=== PATIENT | female | born 1960 | race Caucasian/White ===

== ENCOUNTER 2022-11-02 14:38 | Outpatient (CLI) | payer BC, SELFPAY | END 2022-11-02 14:39 | disposition home or self-care (01) | PROVIDERS: PCP Emergency Medicine; Visit Provider Physician Assistant Medical | DX: I10 Essential (primary) hypertension (principal); M79.641 Pain in right hand; M79.642 Pain in left hand | CPT/HCPCS: 84439; 84443; 86039; 86140; 86200; 86431; 86812 ==

== ENCOUNTER 2022-11-16 12:53 | Outpatient (RCR) | payer BC, SELFPAY ==
--- NOTE | 2022-11-17 16:55 | OT.OPOE ---
OT Outpatient Ortho Eval OT Outpatient Ortho Eval* Start: 11/17/22 15:02 Freq: Status: Active Protocol: Document 11/16/22 01:00 MILAD (Rec: 11/17/22 15:40 MILAD [id number]) E-signed By Paige Nix, OTR/L, CLT OT OP Ortho Eval Details Complexity Complexity Medium Insurance Information Insurance Information [employer] Outpatient History/Precautions Current Condition/Medical Diagnosis Referring Provider Felicia Rea Treatment Diagnosis Pain in R hand M79.641; Stiffness in R hand M25.641 Date of Onset Chronic and getting worse Medical Conditions Arthritis Other Conditions Thrombocytosis TSH elevation Elevated fasting glucose Acute respiratory failure with hypoxia Medical/Functional History Medical History Reviewed Yes Prior Level of Function/Mobility Patient is very active, fully Indep and in good health. Patient has 4 adult children and multiple grandkids who she enjoys spending time with. Social History Employment Status [employer] Employed Current Occupation Patient is a Cook at the [employer] Critical Job Demands Pull,Lift,Overhead Reach, Prolonged Standing,Other Other Critical Job Demands heavy use of hands (cutting, pealing, chopping, measuring, serving, jars) Hobbies Pickleball Fitness Very active Ortho Subjective Subjective Subjective I want to learn what I should do with my hands Pain Assessment Pain Present Pain Present Pain Reported Location Right Hand Description Tightness,Dull, Achy,Throbbing ,Heaviness Intensity 2 Hand Pinch/Supervisor Reinforced Steel Placing Strength Hand Right Supervisor Reinforced Steel Placing Strength Position 1 (lbs) 38 Supervisor Reinforced Steel Placing Strength Position 2 (lbs) 41 Lateral Pinch Strength (lbs) 13 Three Point Pinch (lbs) 13 Tip Pinch Strength (lbs) 12 Left Supervisor Reinforced Steel Placing Strength Position 1 (lbs) 45 Supervisor Reinforced Steel Placing Strength Position 2 (lbs) 45 Lateral Pinch Strength (lbs) 15 Three Point Pinch (lbs) 14 Tip Pinch Strength (lbs) 17 Upper Extremity Special Tests Wrist Durkan's Test Negative Left,Negative Right Median Nerve-Carpal Tunnel Wrist Phalen Test Negative Left,Negative Right Ulnar Nerve Froment's Sign Negative Left,Negative Right Scaphoid and Lunate Hand Luke's Sign Negative Left,Negative Right Hand Botello Test Negative Left,Negative Right OT Problems Problems Problems Decreased Strength,Decreased Range of Motion,Decreased Dexterity,Pain,Gripping, Pinching Other Problems Writing,Opening Containers, Fasteners Patient Potential Excellent Assessment Assessment Assessment This is a pleasant 62 year old female who presents to the clinic with complaints of R ( dominant) hand pain and stiffness (mostly in 2 of her fingers (R Index and Middle). Patient has enlargement of both the index finger and middle finger, there is some slight ulnar deviation of the DIP joints at the index finger and middle finger, along with enlarged joints at the PIP joint, edema present. Patient unable to make a full composite fist with her R hand , lacking 1-1.5 cms at the R index and middle digit. Patient knows that arthritis isn't a diagnosis that she can undo but wishes to be proactive and learn smart strategies in her activity modifications as well as gain hand/wrist strength. Patient reports that she is trying an anti-inflammatory diet Occupational Therapy Treatment Plan - OP Potential Rehabilitation Potential Excellent Barriers Barriers to goal attainment Patient (R) dominant lacks diesel powerplant mechanic strength and pinch strength when being compared to standardized norms for gender/age group. Arthritis is Chronic Set Goals Goals Set with Patient Yes Goals Goals Patient will return to clinic (as needed) provided patient with multiple sheets/handouts/ resources at date/time of EVAL 1. Patient will verbalize 3 activity modifications to decrease abusive/overloading joints in hands. 2. Through activity participation and consistency in performing a customized HEP , patient will improve capacity of R dominant hand to manage daily workloads in order to have less pain with ADLs, work, leisure activities and IADLs. Target Date 10 weeks Treatment Plan Treatment Plan Evaluation,Edema Control, Ultrasound,Therapeutic Exercise,Education Expected Frequency As Needed Expected Duration 8-10 Weeks Home Program Home Program Home Program Initiated Home Program Specifics Yellow putty, hammer, Flex bar , power web digit/hand/wrist strengthening programs. Arthritis Handout on activity modifications and joint protection. Certification Certification I Certify That: Therapy Services Provided, Therapy Plan Established, Therapy Plan Reviewed Recertification Information Recertification Information Initial Certification Date 11/17/22 Recertification Due Date 02/15/23 Provider Signature Shows Agreement With POC & Medical Necessity Physician Comment/Change Comment or Changes Physician NPI Number #
== END 2023-01-04 10:08 | disposition home or self-care (01) ==
PROVIDERS: PCP Emergency Medicine; Visit Provider Physician Assistant Medical
DX: M79.641 Pain in right hand (principal); M79.642 Pain in left hand; M19.041 Primary osteoarthritis, right hand; M25.641 Stiffness of right hand, not elsewhere classified; Z51.89 Encounter for other specified aftercare
CPT/HCPCS: 97166

== ENCOUNTER 2022-12-20 14:29 | Outpatient (CLI) | payer BC, SELFPAY | END 2022-12-20 14:30 | disposition home or self-care (01) | LOC: LKVREF 14:31 | PROVIDERS: PCP Emergency Medicine; Visit Provider Physician Assistant Medical | DX: I10 Essential (primary) hypertension (principal); R79.89 Other specified abnormal findings of blood chemistry | CPT/HCPCS: 84443 ==

== ENCOUNTER 2023-12-13 08:15 | Outpatient (CLI) | payer BC, SELFPAY | END 2023-12-13 08:16 | disposition home or self-care (01) | PROVIDERS: PCP Physician Assistant Medical; Visit Provider Physician Assistant Medical | DX: I10 Essential (primary) hypertension (principal); R79.89 Other specified abnormal findings of blood chemistry; E78.5 Hyperlipidemia, unspecified | CPT/HCPCS: 80053; 80061; 84439; 84443 ==

== ENCOUNTER 2024-01-14 13:49 | Outpatient (CLI) | payer BC, SELFPAY ==
--- OUTSIDE RECORDS SUMMARY | 2024-01-15 08:17 | XMS_ITS | Clinical Summary ---
Author Organization [facility] Address [address] [place] [address] Care Team Providers Care Multiplex Operator Name Role Phone Shannan Roach MD Primary Care Provider [phone]- [phone] Allergies No known active allergies Medications Medication Sig Dispensed Refills Start Date End Date Status vitamin C (ASCORBIC ACID) 500 MG tablet Take 500 mg by mouth 2 times daily Active vitamin D3 (CHOLECALCIFEROL) 50 mcg (2000 units) tablet Take 1 tablet by mouth daily Active zinc 50 MG TABS Take 1 tablet by mouth daily Active albuterol (PROAIR HFA/PROVENTIL HFA/VENTOLIN HFA) 108 (90 Base) MCG/ACT inhalerIndications:P neumonia due to COVID-19 virus Inhale 2 puffs into the lungs every 6 hours as needed for wheezing or shortness of breath / dyspnea 8 g 11/20/2020 Active dexamethasone (DECADRON) 6 MG tabletIndications:Pn eumonia due to COVID-19 virus Take 1 tablet (6 mg) by mouth daily 8 tablet 11/20/2020 Active Active Problems Problem Noted Date Diagnosed Date Acute respiratory failure with hypoxia Pneumonia due to COVID-19 virus 11/18/2020 Acute pain of right shoulder 02/08/2009 Immunizations Name Administration Dates Next Due Td (Adult), Adsorbed 07/17/2016 Social History Tobacco Use Types Packs/Day Years Used Date Smoking Tobacco: Never Assessed Adolescent Education Answer Date Record ed Getting School Help Needed Not on file 01/14 Sex and Gender Information Value Date Recorded Sex Assigned at Not on file Gender Identity Not on file Sexual Orientation Not on file Last Filed Vital Signs Vital Sign Reading Time Taken Comments Blood Pressure 162/91 12/07/2022 10:36 AM CDT Pulse 100 12/07/2022 10:36 AM CDT Temperature 37 ??C (98.6 ??F) 12/07/2022 10:36 AM CDT Respiratory Rate 20 11/20/2020 12:14 PM CDT Oxygen Saturation 97% 12/07/2022 10:36 AM CDT Inhaled Oxygen Concentration - - Weight 82.6 kg (182 lb) 11/18/2020 4:34 PM CDT Height 162.6 cm (5' 4) 11/18/2020 4:34 PM CDT Body Mass Index 31.24 11/18/2020 4:34 PM CDT Plan of Treatment Health Maintenance Due Date Last Done Comments ADVANCE CARE PLANNING 1960 ANNUAL REVIEW OF HM ORDERS 1960 CT COLONOGRAPHY 1960 FIT 1960 FLEX SIG 1960 YEARLY PREVENTIVE VISIT 1960 sDNA (Cologuard) 1960 COVID-19 Vaccine (#1) 1965 COLONOSCOPY 1970 COLORECTAL CANCER SCREENING 1970 HIV SCREENING 07/22/1975 HEPATITIS C SCREENING 1978 LIPID 2000 DTAP/TDAP/TD IMMUNIZATION (1 - Tdap) 07/18/2016 07/17/2016 MAMMO SCREENING 09/30/2017 10/01/2015, 12/21/2009, 11/29/2005 PHQ-2 (once per calendar year) 2023 GLUCOSE 11/21/2023 11/20/2020, 11/19/2020, 11/18/2020 INFLUENZA VACCINE (#1) 2023 8, 01/25/2016, 01/15/2016 PAP 05/11/2025 05/11/2022, 05/11/2022 RSV VACCINE (1 - 1-dose 75+ series) 07/22/2035 ZOSTER IMMUNIZATION Completed 11/01/2020, 07/28/2020 HPV IMMUNIZATION Aged Out No longer e ligible based on patient's age to complete this topic MENINGITIS IMMUNIZATION Aged Out No l onger eligible based on patient's age to complete this topic Pneumococcal Vaccine: Pediatrics (0 to 5 Years) and At-Risk Patients (6 to 64 Years) Aged Out No longer eligible b ased on patient's age to complete this topic RSV MONOCLONAL ANTIBODY Aged Out No l onger eligible based on patient's age to complete this topic Procedures Procedure Name Priority Date/Time Associated Diagnosis Comments BASIC METABOLIC PANEL Routine 11/20/2020 8:04 AM CDT [place] SCREENING DIGITAL BILATERAL Routine 10/01/2015 9:22 AM CDT Visit for screening mammogram from Last 3 Months or Most Recently Relevant to Health Maintenance Results * (ABNORMAL) Basic metabolic panel (11/20/2020 8:04 AM CDT) Sodium 139 133 - 144 mmol/L 11/20/2020 8:44 AM CDT LABORATORY Potassium 4.0 3.4 - 5.3 mmol/L 11/20/2020 8:44 AM CDT LABORATORY Chloride 109 94 - 109 mmol/L 11/20/2020 8:44 AM CDT LABORATORY Carbon Dioxide (CO2) 27 20 - 32 mmol/L 11/20/2020 8:44 AM CDT LABORATORY Anion Gap 3 3 - 14 mmol/L 11/20/2020 8:44 AM CDT LABORATORY Urea Nitrogen 23 7 - 30 mg/dL 11/20/2020 8:44 AM CDT LABORATORY Creatinine 0.93 0.52 - 1.04 mg/dL 11/20/2020 8:44 AM CDT LABORATORY Calcium 9.7 8.5 - 10.1 mg/dL 11/20/2020 8:44 AM CDT LABORATORY Glucose 118(H) 70 - 99 mg/dL 11/20/2020 8:44 AM CDT LABORATORY GFR Estimate 67 >60 mL/min/1.7 3m2 11/20/2020 8:44 AM CDT LABORATORY Comment:As of October 10, 2020, eGFR is calculated by the CKD-EPI creatinine equation, without race adjustment. eGFR can be influenced by muscle mass, exercise, and diet. The reported eGFR is an estimation only and is only applicable if the renal function is stable. Blood STRUCTURE OF LEFT UPPER LIMB / Unknown Venipuncture / Unknown 11/20/2020 8:04 AM CDT 11/20/2020 8:21 AM CDT Kelley Rea PA-C LAB - BLOOD [facility] Lab [address] Lab (1st floor, no room number) [place] [address], [facility] [phone] * [place] Screening Digital Bilateral (10/01/2015 9:22 AM CDT) Anatomical Region Laterality Modality Breast Bilateral Mammography Impressions 10/01/2015 10:57 AM CDT IMPRESSION: BI-RADS CATEGORY: 1 - Negative. RECOMMENDED FOLLOW-UP: Annual Mammography. Recommend routine annual screening mammography. Exam results letter mailed to patient. CHARLI SUMMERS MD Narrative 10/01/2015 10:57 AM CDT SCREENING MAMMOGRAM, BILATERAL, DIGITAL w/CAD - 10/01/2015 9:22 AM. BREAST SYMPTOMS: No current breast complaints. COMPARISON: ??12/21/2009, 11/29/2005. BREAST DENSITY: Scattered fibroglandular densities. COMMENTS: No findings of suspicion for malignancy. ? Procedure Note Charli Summers MD - 10/01/2015 SCREENING MAMMOGRAM, BILATERAL, DIGITAL w/CAD - 10/01/2015 9:22 AM. BREAST SYMPTOMS: No current breast complaints. COMPARISON: 12/21/2009, 11/29/2005. BREAST DENSITY: Scattered fibroglandular densities. COMMENTS: No findings of suspicion for malignancy. IMPRESSION: BI-RADS CATEGORY: 1 - Negative. RECOMMENDED FOLLOW-UP: Annual Mammography. Recommend routine annual screening mammography. Exam results letter mailed to patient. CHARLI SUMMERS MD Jackie Valencia MD IMG MAMMOGRAPHY [facility] from Last 3 Months or Most Recently Relevant to Health Maintenance Advance Directives For more information, please contact: [phone] * Full Code (Latest Code Status on File) Date Activated Date Inactivated Comments 11/18/2020 4:28 PM 11/20/2020 4:12 PM All basic an d advanced life-sustaining interventions are performed as appropriate Question Answer Comments Code status determined by: Discussion with shanika nt/ legal decision maker Care Teams Multiplex Operator Relationship Specialty Start Date End Date Shannan Roach MD [facility] [address] [place] [address] PCP - General Family Medicine 11/18/20
--- OUTSIDE RECORDS SUMMARY | 2024-01-15 08:17 | XMS_ITS | Referral Summary ---
Author Organization [facility] Address [address] [place] [id number] Care Team Providers Care Commercial Finance Manager Name Role Phone Shannan Roach MD Primary Care Provider +1- [phone] Allergies No known active allergies Medications Medication [...] 11/18/2020 4:34 PM CDT Plan of Treatment Not on file Procedures Procedure Name Priority Date/Time Associated Diagnosis [...] - 109 mmol/L 11/20/2020 8:44 AM CDT [facility] Carbon Dioxide (CO2) 27 20 - 32 mmol/L 11/20/2020 8:44 AM CDT [facility] Anion Gap 3 3 - 14 mmol/L 11/20/2020 8:44 AM CDT [facility] Urea Nitrogen 23 7 - 30 mg/dL 11/20/2020 8:44 AM CDT [facility] Creatinine 0.93 0.52 - 1.04 mg/dL [...] Rea PA-C LAB - BLOOD [facility] Acute Care Lab [address] Lab (1st floor, no room number) [place] [address], [facility] [phone] * [place] Screening Digital Bilateral (10/01/2015 9:22 [...] SUMMERS MD Jackie Valencia MD IMG MAMMOGRAPHY [facility] from Last 3 Months or Most Recently Relevant to Health Maintenance Advance Directives For more information, please contact: [phone] * Full Code (Latest Code Status on File) Date Activated Date Inactivated Comments 11/18/2020 4:28 PM 11/20/2020 4:12 PM All basic an d advanced life-sustaining interventions are performed as appropriate Question Answer Comments Code status determined by: Discussion with patie nt/ legal decision maker Care Teams Commercial Finance Manager Relationship Specialty Start Date End Date Shannan Roach MD [facility] [address] [place], [place] [id number] PCP - General Family Medicine 11/18/20
== END 2024-01-14 13:50 | disposition home or self-care (01) ==
LOC: NFLDREF 01-15 08:14
PROVIDERS: PCP Physician Assistant Medical; Referring Provider Physician Assistant Medical; Visit Provider Physician Assistant Medical
DX: R79.89 Other specified abnormal findings of blood chemistry (principal)
CPT/HCPCS: 84439; 84443; 86376

== ENCOUNTER 2024-03-04 13:45 | Outpatient (CLI) | payer BC, SELFPAY ==
--- OUTSIDE RECORDS SUMMARY | 2024-03-08 15:22 | XMS_ITS | Data Portability ---
Author Organization [place] [facility] Address [address] [address] Care Team Providers Care Garment Presser Name Role Phone LISBETH PEREIRA Primary Care Provider TRINA COOPER Referring Provider Assessment Encounter Date Assessment Date Assessment LastModified by Organization Details LastModified Time 01/24/2022 01/24/2022 Today I spent a considerable amount of time discussing the patients past medical and personal history, as well as performing a physical examination all of which is documented in it's entirety in the electronic health record. I reviewed the pathophysiology of the disorder, potential contributing and risk factors as well as treatment options to address their complaints. Today panoramic image was taken. In this radiograph the mandibular condyles were partially visualized and and left especially looks distinctively flat with a loss of condylar height. As this is the symptomatic side we should clarify with a CBCT of what the extent of disease is. Maisha decided to wait on this today. 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 I explained her the progression that may happen with an untreated jaw along with change in dental occlusion. She is using a proform appliance. From a treatment perspective I recommended a rehabilitative treatment approach. Treatment begins with home self management designed to rest the muscles of mastication and reduce inflammation in the temporomandibular joints. This includes heat and ice compresses, eating a soft food or pain-free diet, bilateral chewing identifying and decreasing daytime muscle tension and modification of their sleep position. Beyond self management I believe that they would benefit from a mandibular intraoral appliance. Kate is missing #3 and tends to chew on her left side, she will look into an implant and will check with her dentist in regards to making a splint. In addition I've recommended rehabilitation with physical therapy. The goal of treatment is to restore function and reduce pain. I believe that by following these treatment recommendations there is a good prognosis for reduction of symptoms. History was obtained from the patient. The patient has 3 diagnoses they would like to address. This case is moderate complexity because of multiple diagnoses with chronic symptoms. Data reviewed included: procedure documentation. Discussion with pain team members after visit was necessary. Risk of complications include progressive disease/symptoms. Today time spent may have included a review of past records, history taking, review of diagnoses, contributing factors, treatment plan, diagnostic testing, prognosis, expectations, risks and complications of treatment/no treatment, discussions with other providers and completing documentation was 60 minutes. Cost of care and insurance coverage was reviewed and discussed with the patient. Not available 01/30/2022 13:03:13 02/16/2022 02/16/2022 Patient presents to therapy with signs and symptoms consistent with the ICD 10 diagnoses noted below. Main findings include: L TMJ hypomobility and confirmed condylar changes per imaging. Pt also notes B hand swelling most notably in 2nd and 3rd digits. Condition is evolving with moderate irritability and personal factors/comorbidit ies affecting the plan of care (see history section for list of factors). These findings limit the pt from participation in the following functional activities: . Treatment plan to include reducing myalgia, increasing joint ROM, teaching self management strategies and strengthening to provide long-term symptom reduction. The patient was educated on the risks/benefits of physical therapy and the anatomy pertaining to their present condition. The physical therapy POC and goals were discussed with the patient and all present questions/concerns were addressed. Pt agrees to treatment plan. Rehabilitation potential is good.. Treatment to include: therapeutic exercise, manual therapy, neuro muscular re education, therapeutic activities, self care, possible dry needling and modalities as needed. Frequency: will be 2>1/weeks for 4weeks, tapering as able for a total of 3-4 visits over 1 months. [email or web address] Not available 02/16/2022 16:25:29 Plan of Treatment Reminders Order Date Submit Date Provider Last Modified By Organization Details Last Modified Time Details Appointments None recorded. Lab None recorded. Referral physical therapist referral 2021 022 Not available 13:02:32 Procedures None recorded. Surgeries None recorded. Imaging None recorded. Medication Orders None recorded. Patient Targets Encounter Date Encounter Id Patient Goals Patient Target Last Modified By Organization Details Last Modified Time Short term goals (to be met in 3 weeks):*Pt will decrease muscle tension and muscle guarding habits through education in order to decrease pain allowing for improved tolerance to eating meals with minimal modification.*Pt will be independent with home exercise program while demonstrating compliance and safety in order to return to prior level of function with goal of improving ability to close fingers to a full fist.terminal clerk goals (to be met in 6 weeks):*Patient will report improved score on JFWL by at least 10%, indicating clinically significant improvement in self-reported level of function to allow patient to safely achieve pre-onset level of function. [email or web address] Not available 02/16/2022 16:25:33 Patient Instructions Encounter Date Encounter Id Patient Instructions Last Modified By Organization Details Last Modified Time 01/24/2022 [id number] Self Care for TMD Not availab le 01/30/2022 13:02:32 oral appliance preparation* Not available 01/30/2022 13:02:32 02/16/2022 [id number] Total treatment time minutes today = 44 Next Visit Plan: followup a couple weeks after splint. How are L joint distractions Goals: prevent L TMJ arthritis from worsening. Progress Note Date: Medicare POC sent: [email or web address] Not available 02/16/2022 16:26:34 Reason for Referral Physical Therapist Referral for Degenerative arthritis of temporomandibular joint Referring Physician: Hayes Brooks, Pain Management, Encounter Date: 01/24/2022 Results Created Date Observation Date Name Description Value Unit Range Abnormal Flag Note LastModifiedBy Organization Detail LastModifiedTime 01/31/2001/30/2022 oral appli ance prepa ratio n* Type of appliance mandib ular stabil izatio n applia nce Not Available [place] [address] [facility] [address], [place], [address], 01/24/2022 15:30:42 01/25/20 22 XR, ortho panto gram No observ ation record ed. Not Available 01/24 15:51:41 Result Notes None recorded. Problems Name Problem SNOMED Code Status Onset Date Resolution Date Notes Provider Name and Address Organization Details Recorded Time Degenerativ e arthritis of temporomand ibular joint 070082564 Active 2021 ARIANNANNEKA BROOKS BDS, [place] [address], [place], [address], [facility] 12:51:53 Myofascial pain 535266944 Active 2021 ARIANNACODY JONESDevendra, [place] [address], [place], [address], [facility] 13:02:28 Limitation of movement of temporomand ibular joint 57797999 Active 2021 HAYES BROOKS BDS, [place] [address], [place], [address], [facility] 13:02:29 Problem Notes None recorded. Procedures Surgical History Date Name Laterality Status Provider Name and Address Organization Details Recorded Time 022 06408 - PT Eval Moderate Complexity completed Mariza Triplett DPT [address], [place], [address], [facility] 02/16/2022 16:22:01 022 40647: Self Care/Home Management Training completed Mariza Triplett DPT [address], [place], [address], [facility] 02/16/2022 16:26:10 022 45801: Therapeutic Exercise completed Mariza Triplett DPT [address], [place], [address], [facility] 02/16/2022 16:26:26 022 37339: Manual Therapy completed Mariza Triplett DPT [address] [facility] [address], [place], [address], [facility] 02/16/2022 16:26:11 022 Orthopantogram completed HAYES BROOKS BDS, [place] [address] [facility] [address], [place], [address], [facility] 01/24/2022 15:57:29 000 cholecystectomy completed Willian Farrell [facility] 01/24/2022 15:34:16 Imaging Results Imaging Date Name Status LastModified by Organization Details LastModified Time 01/24/2022 XR, orthopantogram completed Inform ation not available 01/24/2022 15:51:41 Procedure Notes None recorded. Medical Equipment None Reported. Allergies No known drug allergies Medications Name Sig Start Date Stop Date Status Note LastModified by Organization Details LastModified Time binaxnow covid-19 ag card home test kit 01/24 completed Not Available Not Available Not Available azithromycin 500 mg tablet TAKE 1 TABLET BY MOUTH ONCE DAILY FOR 5 DAYS 01/24 completed Not Available Not Available Not Available Vitamin C active Not Available Not Shahana ilable Not Available Fish Oil active Not Available Not Avai lable Not Available biotin active Not Available Not Availa ble Not Available Vitamin D active Not Available Not Shahana ilable Not Available multivitamin active Not Available Not Available Not Available turmeric 100 mg-jorge 150 mg-olive 50 mg-oreg 150 mg-capryl capsule Take by oral route. active Not Available Not Available No t Available Vitals Date Recorded Body height Body mass index (BMI) Body weight Heart rate Systolic blood pressure Diastolic blood pressure Provider Name and Address Organization Details Last Updated DateTime 165.1 cm 29.1 kg/m2 57867.6 6 g 96 /min 172 mm[Hg] 106 mm[Hg] Willian Farrell [facility] 15:32:00 Social History Question Answer Notes LastModified by Organizat ion Details LastModified Time Tobacco Smoking Status Never Smoker Willian Farrelljulisa seo [facility] 01/24/2022 15:33:59 What Is Your Level Of Alcohol Consumption? Occasional Information not available 01/24/2022 What Is Your Level Of Caffeine Consumption? Moderate Information not available 01/24/2022 Are You Currently Employed? Yes Information not available 01/24/2022 What Type Of Diet Are You Following? REGULAR Information not available 01/24/2022 What Is The Highest Grade Or Level Of School You Have Completed Or The Highest Degree You Have Received? 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 Information not available 01/24/2022 Sex: Unknown Functional Status Question Answer Note LastModified by Organization D etails LastModified Time What is your exercise level? Moderate Information not available 01/24/2022 Mental Status None recorded. Family History Relationship Description Onset Age of this Age Resolved Age Notes LastModified by Organization Details LastModified Time Father Hypertensive disorder Not available 01/24 15:33:09 Mother Hypertensive disorder Not available 01/24 15:33:09 Mother Heart disease Not available 01/24 15:33:18 Medical History Condition Response Coronary Artery Disease N Gout N Other N Chronic fatigue syndrome N Hyperthyroidism N Premenstrual syndrome (PMS) N MRSA N Head Trauma/Injury N Emphysema N Irritable bowel syndrome N Hypothyroidism N Lung Disease N Glaucoma N COPD N Depression N Pneumonia N Pacemaker N Obstructive Sleep Apnea N Anxiety Disorder N Muscle, Joint, or Bone Problems N Autoimmune disease N Vision or Eye Problems N Arthritis Y Serious Illness or Injuries N Acid Reflux (GERD) N Cancer N Stroke N Neck Injury N Eating disorder N Back Injury N High Cholesterol N Neurologic Disorder N History of chemotherapy N Liver Disease N Organ Transplant N Rheumatoid Arthritis N Headaches N Fibromyalgia N Kidney Disease N Allergies/Hayfever N Post traumatic stress disorder (PTSD) N Parkinson's Disease N Migraines N Brain Tumors N Anemia N Multiple Sclerosis N Immune System Disorder N Meningitis N Pancreatic disease N Heart Attack ([place]) N Stomach Ulcers N Diabetes N Back pain N Bleeding Disorder N Seizures/Epilepsy N Sjogren's syndrome N Mental Health Concerns N Tuberculosis N AIDS/HIV N Hyperlipidemia N History of radiation therapy N Dementia N Asthma N Physical or sexual abuse N Substance Abuse N Psoriasis N Peripheral Vascular Disease N Reflux/GERD N Vertigo N Sleep Disorder N Hepatitis N Aneurysm N Neuropathy N Heart Disease N Pulmonary Embolism N Hypertension N Osteoporosis N Gynecological HistoryNo gynecological history recorded. Obstetrics History GPAL:G 0 P 0 0 0 0 Past Encounters Encounter ID Performer Location Encounter Start Date Encounter Closed Date Diagnosis/Indication Diagnosis SNOMED-CT Code Diagnosis ICD10 Code [id number] NANCY BROOKS [place] [address] [place] [id number] 01/24/2022 15:10:57 01/30/2022 13:09:50 Myofascial pain 177002076 M79.11 Degenerati ve arthritis of temporomandibular joint 888718405 M13.88 Limitation of movement of temporomandibular joint 48938842 M26.52 [id number] Mariza Triplett DPT [place] [address] [place] [id number] 02/16/2022 15:19:28 02/16/2022 16:14:05 Degenerative arthritis of temporomandibular joint 865867171 M13.88 Limitation of movement of temporomandibular joint 84593126 M26.52 Myofascial pain 36615980 9 M79.11 Health Concerns Section Related Observation LastModified by Organization Detai ls LastModified Time None Recorded Concern Status LastModified by Organization Details LastModified Time None Recorded Advance Directives Directive None Recorded Payers Encounter Date Sequence Insurance Name Policy Number Policy Donis Covered Member ID Donis Member ID Guarantor Name 01/24/2022 1 [facility] [id number] Kai Mason [id number] Kate Mason 02/16/2022 1 [facility] [id number] Kai Mason [id number] Kate Mason Notes Date Note Type Note Provider Name and Address Organization Details Recorded Time 10/25/202 2 text/html general HPI for jaw, face, TMD painReported bypatient.Onset:starte d 4 month(s) ago Location:left; preauricular Quality:dull; aching; sore Severity:pain level 3/10 Durationconstant Symptom triggers:bruxism; chews hard/crunchy/chewy foods Aggravating Factors:grinding teeth; yawning; wide mouth opening Alleviating Factors:acetaminophen; splint therapy Associated Symptoms:jaw clicking left Prior Treatment:armed guard/oral appliance/splint Prior opiniondentist Patient presents today for evaluation of a possible temporomandibular disorder. These symptoms are {{acute* chronic}} and began with {{ no clear triggering events significant stress and tension significant stress#}}. Previous consultation include {{ none evaluation with his/her primary care provider evaluation with his/her dentist* evaluation with both his/her dentist and primary care provider}}. Symptoms are {{right sided only left sided only* bilateral}} and aggravated by {{ no clear triggers jaw use and function* clenching and grinding of their teeth stress and tension}}. The patient is {{aware* not aware}} of teeth clenching and grinding.Kate is a pleasant 61 year old woman with left sided jaw pain, that started about 4 months ago. She is having cracking noise on the left. She has a soft guard from her DDS that was made about 4 years ago because of attrition of teeth. She has been eating a soft diet, she notices left sided pain with chewing. Kate denies locking of the jaw. Pain is dull and achy and aggravated with chewy food. She is aware of grinding noise in the TMJ. She can hear it in her ear as well. She has been chewing primarily on the left as she has missing tooth on the right. 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 About 2 years ago she started noticing arthritis in her hands. HAYES BROOKS BDS, [place] [address] [facility] [address], [place], [address], [facility] 01/30/2022 13:04:22 2 text/html Patient presents today for PT evaluation regarding: protecting her joint on the L Symptoms began: years ago had a softer splint and didn't have any issues until more recenty Aggravated by: opening wide, eating chewy foods. Is avoiding anything that might impact the joint. Improved by: eating on the R and not only the L, limiting chewy foods Current symptoms are reported at not much pain maybe 2/10. Pt was previously able to complete ADLs and IADLs I without limitation or pain. Functional limitations and participation restrictions currently include: *yawning - tongue up helps *eating - self limiting chewy foods and taking small bites Personal factors and/or comorbidities affecting the plan of care include: *B 2nd and 3rd digits enlarged and swollen - probable OA with multiple joint involvement however small joints only. Notes a family hx of arthritis. Denies: numbness, tingling, vision changes, swallowing difficulty. Previous Treatment: pending splint from DDS - mandibular. Following exercises from Dr. Brooks. Patient Goals include: learn how to protect joint and prevent further damage. Is concerned about arthritis at her age. Patient Reported Outcome JFLS-8 (out of 80): 02/16= Mariza Triplett DPT [address] [facility] [address], [place], [address], [facility] 02/16/2022 16:26:51 OBGyn Episode No OBEpisode recorded.
--- OUTSIDE RECORDS SUMMARY | 2024-03-08 15:22 | XMS_ITS | Encounter Summary ---
Author Organization [place] Address [address] [place] [address] Care Team Providers Care Terrazzo Finisher Helper Name Role Phone Shannan Roach MD Primary Care Provider [phone] Reason for Referral * Diagnostic Imaging Mammo (Routine) - Pending Review Specialty Diagnoses / Procedures Referred By Contac t Referred To Contact Radiology. Diagnoses Encounter for general adult medical examination without abnormal findings Procedures MA Screen Bilateral w/Felicia Russell PA-C [place] [id number] Phone: tel: fax: Referral ID Status Reason Start Date Expiration Date V isits Requested Visits Authorized [id number] Pending Review 12/18/2023 12/17/2024 1 1 ENTER APPRENTICE Reason for Visit * Diagnostic Imaging Mammo (Routine) - Pending Review Specialty Diagnoses / Procedures Referred By Contac t Referred To Contact Radiology. Diagnoses Encounter for general adult medical examination without abnormal findings Procedures MA Screen Bilateral w/ShadFelicia Andrade PA-C [address] [address] Phone: tel: fax: Referral ID Status Reason Start Date Expiration Date V isits Requested Visits Authorized [id number] Pending Review 12/18/2023 12/17/2024 1 1 Encounter Details Date Type Department Care Team (Late st Contact Info) Description 02/12/2024 2:02 PM CARPENTER APPRENTICE - 02/12/2024 11:59 PM CARPENTER APPRENTICE Hospital Encounter [facility] [address] [place] [address] Felicia Veliz PA-C [facility] [address] [place] [address] Encounter for general adult medical examination without abnormal findings Discharge Disposition: Home or Self Care Social History Tobacco Use Types Packs/Day Years Used Date Smoking Tobacco: Never Assessed Adolescent Education Answer Date Record ed Getting School Help Needed Not on file 01/14 Comments Unknown Sex and Gender Information Value Date Recorded Sex Assigned at Not on file Legal Sex Female 2:58 AM CARPENTER APPRENTICE Gender Identity Not on file Sexual Orientation Not on file documented as of this encounter Medications at Time of Discharge albuterol (PROAIR HFA/PROVENTIL HFA/VENTOLIN HFA) 108 (90 Base) MCG/ACT inhalerIndicatio ns:Pneumonia due to COVID-19 virus Inhale 2 puffs into the lungs every 6 hours as needed for wheezing or shortness of breath / dyspnea 8 g 11/20/2020 dexamethasone (DECADRON) 6 MG tabletIndication s:Pneumonia due to COVID-19 virus Take 1 tablet (6 mg) by mouth daily 8 tablet 11/20/2020 vitamin C (ASCORBIC ACID) 500 MG tablet Take 500 mg by mouth 2 times daily vitamin D3 (CHOLECALCIFEROL ) 50 mcg (2000 units) tablet Take 1 tablet by mouth daily zinc 50 MG TABS Take 1 tablet by mouth daily documented as of this encounter Plan of Treatment Not on file documented as of this encounter Procedures Procedure Name Priority Date/Time Associated Diagnosis Comments MA SCREENING BILATERAL W/ SHAD Routine 02/12/2024 2:30 PM CARPENTER APPRENTICE Encounter for general adult medical examination without abnormal findings documented in this encounter Results * MA Screen Bilateral w/Shad (02/12/2024 2:30 PM CARPENTER APPRENTICE) Anatomical Region Laterality Modality Breast Bilateral Mammography Impressions 02/13/2024 8:12 AM CARPENTER APPRENTICE IMPRESSION: ACR BI-RADS Category 1: Negative BREAST CANCER SCREENING RECOMMENDATION: Routine yearly mammography beginning at age 40 or as discussed with your provider. The results and recommendations of this examination will be communicated to the patient. Juvencio Summers MD Narrative 02/13/2024 8:12 AM CARPENTER APPRENTICE BILATERAL FULL FIELD DIGITAL SCREENING MAMMOGRAM WITH TOMOSYNTHESIS Performed on: 02/12/24 Compared to: 10/01/2015 Technique: This study was evaluated with the assistance of Computer-Aided Detection. Breast Tomosynthesis was used in interpretation. Findings: There are scattered areas of fibroglandular density. There is no radiographic evidence of malignancy. Felicia Veliz PA-C IMG MAMMOGRAPHY ORDERAB LES Final Result documented in this encounter Visit Diagnoses Diagnosis Encounter for general adult medical examination without abnormal findings Routine general medical examination at a health care facility documented in this encounter Care Teams Terrazzo Finisher Helper Relationship Specialty Start Date End Date Shannan Roach MD [facility] [address] [place] [address] PCP - General Family Medicine 11/18/20 documented as of this encounter
--- OUTSIDE RECORDS SUMMARY | 2024-03-08 15:22 | XMS_ITS | Clinical Summary ---
Author Organization [place] Address [address] [place] [address] Care Team Providers Care Skin Care Technician Name Role Phone Shannan Roach MD Primary Care Provider [phone]- [phone] Allergies No known active allergies Medications vitamin C (ASCORBIC ACID) 500 MG tablet Take 500 mg by mouth 2 times daily Active vitamin D3 (CHOLECALCIFERO L) 50 mcg (2000 units) tablet Take 1 tablet by mouth daily Active zinc 50 MG TABS Take 1 tablet by mouth daily Active albuterol (PROAIR HFA/PROVENTIL HFA/VENTOLIN HFA) 108 (90 Base) MCG/ACT inhalerIndicati ons:Pneumonia due to COVID-19 virus Inhale 2 puffs into the lungs every 6 hours as needed for wheezing or shortness of breath / dyspnea 8 g 1 Active dexamethasone (DECADRON) 6 MG tabletIndicatio ns:Pneumonia due to COVID-19 virus Take 1 tablet (6 mg) by mouth daily 8 tablet 1 Active Active Problems Problem Noted Date Diagnosed Date Acute respiratory failure with hypoxia 1 Pneumonia due to COVID-19 virus 11/18/2020 Acute pain of right shoulder 02/08/2009 Encounters Date Type Department Care Team Description 02/12/2024 2:02 PM LEACHER - 02/12/2024 11:59 PM LEACHER Hospital Encounter [facility] [address], [address] [place] [address] Felicia Veliz PA-C Encounter for general adult medical examination without abnormal findings Discharge Disposition: Home or Self Care 02/12/2024 Travel from Last 3 Months Immunizations Name Administration Dates Next Due Td (Adult), Adsorbed 07/17/2016 Social History Tobacco Use Types Packs/Day Years Used Date Smoking Tobacco: Never Assessed Adolescent Education Answer Date Record ed Getting School Help Needed Not on file 01/14 Comments Unknown Sex and Gender Information Value Date Recorded Sex Assigned at Not on file Legal Sex Female 2:58 AM LEACHER Gender Identity Not on file Sexual Orientation Not on file Last Filed Vital Signs Vital Sign Reading Time Taken Comments Blood Pressure 162/91 12/07/2022 10:36 AM CDT Pulse 100 12/07/2022 10:36 AM CDT Temperature 37 C (98.6 F) 12/07/2022 10:36 AM CDT Respiratory Rate 20 [...] DTAP/TDAP/TD IMMUNIZATION (1 - Tdap) 07/18/2016 07/17/2016 PHQ-2 (once per calendar year) 2023 GLUCOSE 11/21/2023 11/20/2020, 082 , 11/18/2020 INFLUENZA VACCINE (#1) 2023 8, 01/25/2016, 01/15/2016 PAP 05/11/2025 05/11/2022, 05/11/2022 MAMMO SCREENING 02/11/2026 02/12/2024, 07/04/2015, 12/21/2009, Additional history exists RSV VACCINE (1 - 1-dose 75+ series) 07/22/2035 ZOSTER IMMUNIZATION Completed 11/01/2020, HPV IMMUNIZATION Aged Out No longer e ligible based on patient's age to complete this topic MENINGITIS IMMUNIZATION Aged Out No l onger eligible based on patient's age to complete this topic Pneumococcal Vaccine: Pediatrics (0 to 5 Years) and At-Risk Patients (6 to 64 Years) Aged Out No longer eligible based on patient's age to complete this topic RSV MONOCLONAL ANTIBODY Aged Out No l onger eligible based on patient's age to complete this topic Procedures Procedure Name Priority Date/Time Associated Diagnosis Comments MA SCREENING BILATERAL W/ SHAD Routine 02/12/2024 2:30 PM LEACHER Encounter for general adult medical examination without abnormal findings BASIC METABOLIC PANEL Routine 11/20/2020 8:04 AM CDT from Last 3 Months or Most Recently Relevant to Health Maintenance Results * MA Screen Bilateral w/Shad (02/12/2024 2:30 PM LEACHER) Anatomical Region Laterality Modality Breast Bilateral Mammography Impressions 02/13/2024 8:12 AM LEACHER IMPRESSION: ACR BI-RADS Category 1: Negative BREAST CANCER SCREENING RECOMMENDATION: Routine yearly mammography beginning at age 40 or as discussed with your provider. The results and recommendations of this examination will be communicated to the patient. Juvencio Summers MD Narrative 02/13/2024 8:12 AM LEACHER BILATERAL FULL FIELD DIGITAL SCREENING MAMMOGRAM WITH TOMOSYNTHESIS Performed on: 02/12/24 Compared to: 10/01/2015 Technique: This study was evaluated with the assistance of Computer-Aided Detection. Breast Tomosynthesis was used in interpretation. Findings: There are scattered areas of fibroglandular density. There is no radiographic evidence of malignancy. us Felicia Veliz PA-C IMG MAMMOGRAPHY ORDERAB LES Final Result * (ABNORMAL) Basic metabolic panel (11/20/2020 8:04 [...] CDT Kelley Rea PA-C LAB - BLOOD ORDERABLES F inal Result LABORATORY [facility] Acute Care Lab [address] Lab (1st floor, no room number) [place] [address], [facility] [phone] from Last 3 Months or Most Recently Relevant to Health Maintenance Insurance BCBS OUT OF STATE BCBS OUT OF STATE Advance Directives For more information, please contact: [phone] * Full Code (Latest Code Status on File) Date Activated Date Inactivated Comments 11/18/2020 4:28 PM 11/20/2020 4:12 PM All basic an d advanced life-sustaining interventions are performed as appropriate Question Answer Comments Code status determined by: Discussion with patie nt/ legal decision maker Care Teams Skin Care Technician Relationship Specialty Start Date End Date Shannan Roach MD [address] [address] PCP - General Family Medicine 11/18/20
--- OUTSIDE RECORDS SUMMARY | 2024-03-08 15:22 | XMS_ITS | Clinical Summary ---
Author Organization [facility] Address [place], [place] [address] Care Team Providers Care Shot Man Name Role Phone Nonstaff, Doctor Primary Care Provider Unavailab le Allergies Active Allergy Reactions Criticality Noted Date Comments Dexamethasone Other - Describe In Comment Field 03/05/2022 jittery Medications ibuprofen (ADVIL; MOTRIN) 400 mg tablet Take 1 tablet by mouth 4 times daily if needed. 0 4 Active pseudoephedrine (SUDAFED) 30 mg tablet Take 1 tablet by mouth every 4 hours if needed for Nasal Congestion. 0 4 Active cholecalciferol, Vitamin D3, 2,000 unit tablet Take 1 Tablet by mouth once daily. Active ascorbic acid chewable (VITAMIN C) 500 mg tablet Chew 500 mg by mouth. Active albuterol HFA (PRO-AIR; VENTOLIN; PROVENTIL) 90 mcg/actuation inhalerIndicatio ns:Pneumonia due to infectious organism, unspecified laterality, unspecified part of lung Inhale 1-2 Puffs by mouth every 4 hours if needed for Wheezing 1st choice. 1 Each 2 Active amoxicillin-clav ulanate 875-125 mg tablet (AUGMENTIN)Indic ations:Pneumonia due to infectious organism, unspecified laterality, unspecified part of lung Take 1 Tablet by mouth two times daily with meals. 20 Tablet 2 Active azithromycin (Zithromax Z-Glenn) 250 mg tabletIndication s:Pneumonia due to infectious organism, unspecified laterality, unspecified part of lung Two tablets the first day, one daily days 2-5 6 Tablet 2 Active benzonatate (TESSALON) 200 mg capsuleIndicatio ns:Pneumonia due to infectious organism, unspecified laterality, unspecified part of lung Take 1 Capsule (200 mg) by mouth 3 times daily if needed for Cough. 21 Capsule 2 Active predniSONE (DELTASONE) 20 mg tabletIndication s:Wheezing,Pneum onia due to infectious organism, unspecified laterality, unspecified part of lung Take 2 Tablets (40 mg) by mouth once daily. 10 Tablet 2 Active inhalational spacing deviceIndication s:Pneumonia due to infectious organism, unspecified laterality, unspecified part of lung For home use. 1 Each 2 Active Active Problems Problem Noted Date Diagnosed Date Degenerative arthritis of temporomandibular join t 01/30/2022 Limitation of movement of temporomandibular join t 01/30/2022 Myofascial pain 01/30/2022 Acute respiratory failure with hypoxia 1 Pneumonia due to COVID-19 virus 11/18/2020 Acute pain of right shoulder 02/08/2009 Immunizations Name Administration Dates Next Due Hepatitis A (Adult) 07/17/2016 Influenza, IIV4 01/25/2018,01/25/2016,01/15/2016 Td (Age >=7 Years) 07/17/2016 Typhoid (injectable) 07/17/2016 Zoster (Shingrix-RZV, recombinant) 11/01/2020, Social History Tobacco Use Types Packs/Day Years Used Date Smoking Tobacco: Never Smokeless Tobacco: Never Alcohol Use Standard Drinks/Week Comments Not Asked 0 (1 standard drink = 0.6 oz pur e alcohol) Comments No Sex and Gender Information Value Date Recorded Sex Assigned at Not on file Legal Sex Female 10:19 AM DOCTOR OF VETERINARY MEDICINE Gender Identity Not on file Sexual Orientation Not on file Obstetrics History Last Filed Vital Signs Vital Sign Reading Time Taken Comments Blood Pressure 146/97 03/05/2022 8:48 AM DOCTOR OF VETERINARY MEDICINE Pulse 102 03/05/2022 8:48 AM DOCTOR OF VETERINARY MEDICINE Temperature 36.4 C (97.6 F) 03/05/2022 8:48 AM DOCTOR OF VETERINARY MEDICINE Respiratory Rate 22 03/05/2022 8:48 AM DOCTOR OF VETERINARY MEDICINE Oxygen Saturation 96% 03/05/2022 8:48 AM DOCTOR OF VETERINARY MEDICINE Inhaled Oxygen Concentration - - Weight 81.6 kg (180 lb) 03/05/2022 8:48 AM DOCTOR OF VETERINARY MEDICINE Height 163.8 cm (5' 4.5) 03/05/2022 8:48 AM DOCTOR OF VETERINARY MEDICINE Body Mass Index 30.42 03/05/2022 8:48 AM DOCTOR OF VETERINARY MEDICINE Plan of Treatment Health Maintenance Due Date Last Done Comments Tdap 07/22/1971 Depression screening for age 12+ 1972 HIV for age 15-65 07/22/1975 Hepatitis C screening for ag e 18-79 1978 Colonoscopy through age 75 2005 Lipids for age 45-75 2005 Mammogram for age 45-75 2005 BMI (ht and wt on same day) for age 18+ 03/05/2023 03/05/2022 COVID-19 vaccine series (2023- season) 2023 Influenza for age 50-64 12/02/2023 01/26/20 18, 01/25/2016, 01/15/2016 Pap test for age 21-65 05/11/2025 , 05/11/2022 Tetanus booster 07/17/2026 07/17/2016 Zoster (shingles) series for age 50+ Completed 11/01/2020, 07/28/2020 Pneumococcal series for age 6-64 Aged Out No longer eligible b ased on patient's age to complete this topic Procedures Procedure Name Priority Date/Time Associated Diagnosis Comments HPV HIGH RISK Routine 05/11/2022 4:04 PM DOCTOR OF VETERINARY MEDICINE from Last 3 Months or Most Recently Relevant to Health Maintenance Results * HPV HIGH RISK (05/11/2022 4:04 PM DOCTOR OF VETERINARY MEDICINE) TYPE 16 Negative Negative 05/16/2022 2:01 PM DOCTOR OF VETERINARY MEDICINE [facility] LAB[facility] TYPE 18 Negative Negative 05/16/2022 2:01 PM DOCTOR OF VETERINARY MEDICINE [facility] TR[facility] LAB[facility] OTHER HIGH RISK TYPES Negative Negative 05/16/2022 2:01 PM DOCTOR OF VETERINARY MEDICINE [facility] TR[facility] LAB[facility] Other (Cervical/Vagina l) 05/11/2022 4:04 PM DOCTOR OF VETERINARY MEDICINE 05/15/2022 8:15 AM DOCTOR OF VETERINARY MEDICINE Narrative [facility] - 05/16/2022 2:01 PM DOCTOR OF VETERINARY MEDICINE HPV types 16, 18, 31, 33, 35, 39, 45, 51, 52, 56, 58, 59, 66 and 68 DNA were undetectable or below the pre-set threshold. Methodology: Daisy Dorothy 4800 HPV Test us Shannan Roach MD MICROBIOLOGY Final Resu lt [facility] [address] [place] [address], from Last 3 Months or Most Recently Relevant to Health Maintenance Insurance [place] [id number] [facility] Care Teams Shot Man Relationship Specialty Start Date End Date Nonstaff, Doctor NON STAFF DOCTOR PCP - General 04/02/13
--- OUTSIDE RECORDS SUMMARY | 2024-03-08 15:22 | XMS_ITS | Encounter Summary ---
Author Organization [place] Address [address] [place] [address] Care Team Providers Care Family Reunification Specialist Name Role Phone Shannan Roach MD Primary Care Provider +1- [phone] Encounter Details Date Type Department Care Team (Latest Contact Info) Description 02/12/2024 Travel Social History Tobacco Use Types Packs/Day Years Used Date Smoking Tobacco: Never Assessed Adolescent Education Answer Date Record ed Getting School Help Needed Not on file 01/14 Comments Unknown Sex and Gender Information Value Date Recorded Sex Assigned at Not on file Legal Sex Female 2:58 AM DISPATCHER CLERK Gender Identity Not on file Sexual Orientation Not on file documented as of this encounter Plan of Treatment Not on file documented as of this encounter Visit Diagnoses Not on filedocumented in this encounter Care Teams Family Reunification Specialist Relationship Specialty Start Date End Date Shannan Roach MD [facility] [address] [place] [address] PCP - General Family Medicine 11/18/20 documented as of this encounter
--- OUTSIDE RECORDS SUMMARY | 2024-03-08 15:22 | XMS_ITS | Referral Summary ---
Author Organization [place] Address [address] [place] [address] Care Team Providers Care Non Destructive Evaluation Specialist Name Role Phone Shannan Roach MD Primary Care Provider +1- [phone] Encounters Date Type Department Care Team Description 02/12/2024 Travel 02/12/2024 2:02 PM TELEPHONE EXCHANGE OPERATOR - 02/12/2024 11:59 PM [facility] Hospital Encounter [facility] [address], [address] [place] [address] Felicia Veliz PA-C Encounter for general adult medical examination without abnormal findings Discharge Disposition: Home or Self Care from Last 3 Months Allergies No known active allergies Medications vitamin [...] on file Legal Sex Female 2:58 AM TELEPHONE EXCHANGE OPERATOR Gender Identity Not on file Sexual Orientation [...] BILATERAL W/ SHAD Routine 02/12/2024 2:30 PM TELEPHONE EXCHANGE OPERATOR Encounter for general adult medical examination without abnormal findings BASIC METABOLIC PANEL Routine 11/20/2020 8:04 AM CDT from Last 3 Months or Most Recently Relevant to Health Maintenance Results * MA Screen Bilateral w/Shad (02/12/2024 2:30 PM TELEPHONE EXCHANGE OPERATOR) Anatomical Region Laterality Modality Breast Bilateral Mammography Impressions 02/13/2024 8:12 AM TELEPHONE EXCHANGE OPERATOR IMPRESSION: ACR BI-RADS Category 1: Negative BREAST CANCER SCREENING RECOMMENDATION: Routine yearly mammography beginning at age 40 or as discussed with your provider. The results and recommendations of this examination will be communicated to the patient. Juvencio Summers MD Narrative 02/13/2024 8:12 AM TELEPHONE EXCHANGE OPERATOR BILATERAL FULL FIELD DIGITAL SCREENING MAMMOGRAM WITH [...] 8:04 AM CDT 11/20/2020 8:21 AM CDT us Kelley Rea PA-C LAB - BLOOD ORDERABLES F inal Result [facility] Acute Care Lab [address] (1st floor, no room number) [place] [address], [facility] [phone] from Last 3 Months or Most Recently Relevant to Health Maintenance Insurance BCBS OUT OF STATE BCBS OUT OF STATE Advance Directives For more information, please contact: [phone] * Full Code (Latest Code Status on File) Date Activated Date Inactivated Comments 11/18/2020 4:28 PM 11/20/2020 4:12 PM All basic an d advanced life-sustaining interventions are performed as appropriate Question Answer Comments Code status determined by: Discussion with shanika nt/ legal decision maker Care Teams Non Destructive Evaluation Specialist Relationship Specialty Start Date End Date Shannan Roach MD [facility] [address] [place] [address] PCP - General Family Medicine 11/18/20
== END 2024-03-04 13:46 | disposition home or self-care (01) ==
LOC: NFLDREF 03-08 15:20
PROVIDERS: PCP Physician Assistant Medical; Referring Provider Physician Assistant Medical; Visit Provider Physician Assistant Medical
DX: R79.89 Other specified abnormal findings of blood chemistry (principal)
CPT/HCPCS: 84443; 86376

== ENCOUNTER 2025-01-08 14:44 | Outpatient (CLI) | payer BC, SELFPAY | END 2025-01-08 14:45 | disposition home or self-care (01) | PROVIDERS: PCP Physician Assistant Medical; Visit Provider Physician Assistant Medical | DX: R79.89 Other specified abnormal findings of blood chemistry (principal) | CPT/HCPCS: 80053; 80061; 84443 ==